=== PATIENT | female | born 1960 | race Caucasian/White ===

== ENCOUNTER 2016-11-15 03:24 | Emergency (ER) | payer OTHER ==
[~2016-11-15] VITALS: Ht 167.6 cm; Wt 158.0 kg
[~2016-11-15 03:24] MED LIST: ADULT LOW DOSE81 M1; ASPIRIN81 M1 PO; BUPROPION HCL100 MG PO; CALCIUM CITRAT1 EA10 PO; CELEXA40 MG PO; CITALOPRAM HBR40 M1 PO; CRANBERRY; CRANBERRY450 M1 PO; FLUOXETINE HCL40 MG PO; HYDROCHLOROTH12.5 M1; HYDROCHLOROTH12.5 M1 PO; HYDROCHLOROTH12.5 MG PO; HYDROCODON-ACE1 EAC1 PO; HYOSCYAMINE0.125 MG PO; LISINOPRIL; LOFIBRA54 MG PO; MVI; NEXIUM40 MG; NIASPAN1000 MG PO; OMEPRAZOLE20 MG PO; PERCOCET 5/31 TABLET PO; PRAVASTATIN; PRAVASTATIN SOD40 MG PO; PREVACID15 MG PO; PRINIVIL20 MG PO; PROAIR HFA8.5 GM IH; PROPOXYPHENE1 TABLET PO; PROVENTIL,2.5 MG/3 M IH; SYMBICORT60 INHALAT IH; THERAGRAN1 TABLET PO; TOPAMAX50 MG PO; VANCOMYCIN HCL250 MG PO; Vancocin Oral Solution PO; ZANTAC150 M1 PO; ZESTRIL,PRINIVI20 MG PO; ZOFRAN ODT8 MG PO; ZOFRAN8 MG PO
[2016-11-15 03:27] VITALS: BP 142/78
[2016-11-15] MEDS ORDERED: PREDNISONE20 MG PO (03:35)
[2016-11-15] MEDS ORDERED: PEPCID20 MG PO (03:35)
== END 2016-11-15 03:57 | disposition home or self-care (01) ==
LOC: EME 03:24
DX: L50.9 Urticaria, unspecified (principal); Z79.82 Long term (current) use of aspirin
CPT/HCPCS: 99281; 99283; J7512

== ENCOUNTER 2016-12-22 04:10 | Observation (INO) | payer OTHER ==
[~2016-12-22] VITALS: Ht 167.6 cm; Wt 163.5 kg
[~2016-12-22 04:10] MED LIST changes: +PEPCID20 MG PO; +PREDNISONE20 MG PO
[2016-12-22 05:03] LABS: HEMATOCRIT 43.2 % (36.0-46.0); MCH 30.3 PG (29.0-34.0); MCHC 33.8 G/DL (30.0-36.0); MCV 89.6 FL (83-99); MEAN PLAT.VOLUME 10.5 uM^3 (9.5-12.4); PLATELET COUNT 299 K/uL (156-360); RED BLOOD COUNT 4.82 M/uL (3.80-5.20); WHITE BLOOD COUNT 9.3 K/uL (4.1-10.2)
[2016-12-22 05:13] LABS: CHLORIDE 109 mEq/L (99-109); POTASSIUM 3.9 mEq/L (3.7-5.4); SODIUM 143 mEq/L (136-147)
[2016-12-22 05:15] LABS: GLUCOSE 112 mg/dL (70-99)
[2016-12-22 05:16] LABS: ANION GAP 12 MEQ/L (2-14)
[2016-12-22 05:18] LABS: GFR ESTIMATE (CALCULATED) > 59 mL/min/
[2016-12-22 05:19] LABS: UREA NITROGEN (BUN) 9 mg/dL (9-23)
[2016-12-22 05:23] LABS: TROP-I INTERPRETATION NEGATIVE; TROPONIN-I < 0.01 ng/mL (0.0-0.30)
[2016-12-22 08:35] LABS: D-DIMER ELISA 0.59 mg/L FEU (< 0.57)
[2016-12-22] MEDS ORDERED: ZANTAC150 MG PO (09:33)
[2016-12-22] MEDS ORDERED: HYDROCHLOROTH12.5 M3 PO (09:34)
[2016-12-22] MEDS ORDERED: TRICOR145 MG PO (09:36)
[2016-12-22] MEDS ORDERED: COZAAR50 MG PO (09:36)
[2016-12-22] MEDS ORDERED: PRAVACHOL80 MG PO (09:37)
[2016-12-22] MEDS ORDERED: SPIRIVA1 INHALATI IH (09:38)
[2016-12-22] MEDS ORDERED: TYLENOL EXTRA500 MG PO (09:40)
[2016-12-22] MEDS ORDERED: ZYRTEC10 M3 PO (09:40)
[2016-12-22 12:50] VITALS: BP 109/64
[2016-12-22 14:26] LABS: TROP-I INTERPRETATION NEGATIVE; TROPONIN-I < 0.01 ng/mL (0.0-0.30)
[2016-12-22 16:29] VITALS: BP 122/62
[2016-12-22 21:00] VITALS: BP 112/61
[2016-12-22 21:13] LABS: TROP-I INTERPRETATION NEGATIVE; TROPONIN-I < 0.01 ng/mL (0.0-0.30)
[2016-12-23 00:23] VITALS: BP 126/77
[2016-12-23 04:36] VITALS: BP 102/66
[2016-12-23 07:23] LABS: ANION GAP 12 MEQ/L (2-14); CHLORIDE 107 MEQ/L (99-109); GFR ESTIMATE (CALCULATED) > 59 mL/min/; POTASSIUM 3.9 MEQ/L (3.7-5.4); SAMPLE HEMOLYSIS CHECK 0; SAMPLE ICTERIC CHECK 0; SAMPLE LIPEMIA CHECK 0; SODIUM 138 MEQ/L (136-147); UREA NITROGEN (BUN) 12 mg/dL (9-23)
[2016-12-23 07:25] LABS: GLUCOSE 171 mg/dL (70-99)
[2016-12-23 08:01] VITALS: BP 97/52
[2016-12-23] MEDS ORDERED: NICOTINE PATCH1 EAC2 TD (08:56)
[2016-12-23] MEDS ORDERED: ZITHROMAX500 MG PO (09:04)
[2016-12-23] MEDS ORDERED: PREDNISONE10 MG PO (09:04)
[2016-12-23 10:26] VITALS: BP 109/55
[2016-12-23] MEDS ORDERED: LOSARTAN POTASS25 MG PO (10:33)
== END 2016-12-23 12:55 | disposition home or self-care (01) ==
LOC: EME 04:10 → EDOF 08:07 → 5WEST 08:07 → EDOF 08:45 → 5WEST 12:21
PROVIDERS: Internal Medicine
DX: J44.1 Chronic obstructive pulmonary disease with (acute) exacerbation (principal); F32.9 Major depressive disorder, single episode, unspecified; I10 Essential (primary) hypertension; E66.01 Morbid (severe) obesity due to excess calories; Z68.43 Body mass index [BMI] 50.0-59.9, adult; F17.210 Nicotine dependence, cigarettes, uncomplicated; Z96.641 Presence of right artificial hip joint; Z82.61 Family history of arthritis; Z82.49 Family history of ischemic heart disease and other diseases of the circulatory system; Z82.0 Family history of epilepsy and other diseases of the nervous system; Z87.19 Personal history of other diseases of the digestive system
CPT/HCPCS: 71020; 71275; 80048; 84484; 85027; 85379; 93005; 94640; 94640 76; 99202; 99281; 99284; G0378; J1650; J2930